=== PATIENT | male | born 1950 | race Caucasian/White ===

== ENCOUNTER 2018-07-31 06:03 | Day surgery (SDC) | payer OTHER ==
[2018-07-31] MEDS ORDERED: LR 1,000 ML IV ONE (06:13)
[2018-07-31] MEDS ORDERED: LIDOCAINE 1% 2 ML INJ ID PRN (06:13)
[2018-07-31] MEDS ORDERED: ceFAZolin 2 GM/DEXTROSE 100 ML IV ONE (06:13)
[2018-07-31] MEDS ORDERED: BUPIVACAINE 0.5% 30 ML SDV ONE (06:38)
[2018-07-31] MEDS ORDERED: MIDAZOLAM 2 MG/2 ML VIAL IVP ONE (07:00)
--- NOTE | 2018-07-31 07:01 | PDANEPAE ---
ANE History of Present Illness here for [facility] ANE Past Medical History - Cardiovascular History Hx Hypertension: No Hx Arrhythmias: No Hx Chest Pain: No Hx Coronary Artery / Peripheral Vascular Disease: No Hx CHF / Valvular Disease: No Hx Palpitations: No - Pulmonary History Hx COPD: No Hx Asthma/Reactive Airway Disease: No Hx Recent Upper Respiratory Infection: No Hx Oxygen in Use at Home: No Hx Sleep Apnea: No Sleep Apnea Screening Result - Last Documented: Negative - Neurologic History Hx Cerebrovascular Accident: No Hx Seizures: No Hx Dementia: No - Endocrine History Hx Diabetes: No - Renal History Hx Renal Disorders: No - Liver History Hx Hepatic Disorders: No - Neurological & Psychiatric Hx Hx Neurological and Psychiatric Disorders: No - Cancer History Hx Cancer: No - Congenital Disorder History Hx Congenital Disorders: No - GI History Hx Gastrointestinal Disorders: No - Other Health History Other Health History: deviated septum, difficulty breathing through nose. wears contacts/ glasses - Chronic Pain History Chronic Pain: No - Surgical History Prior Surgeries: eyelid surgery with local ANE Review of Systems Review of systems is: negative Review of Systems: - Exercise capacity Exercise capacity: >=4 METS METS (RN): 4 METS ANE Patient History - Allergies Allergies/Adverse Reactions: No Known Allergies Allergy (Verified 07/31/18 06:35) - Home Medications Home medications: home medication list seen and reviewed Home Medications: Aleve 220 MG (*) PRN 07/27/18 [Last Taken 07/30/18] Aspirin PRN 07/27/18 [Last Taken 07/27/18] - NPO status NPO Status: no food or drink >8 hours NPO Since - Liquids (Date): 07/30/18 NPO Since - Liquids (Time): 23:00 NPO Since - Solids (Date): 07/30/18 NPO Since - Solids (Time): 23:00 - Anes Hx Anes Hx: no prior problems - Smoking Hx Smoking Status: Former smoker - Family Anes Hx Family Hx Anesthesia Complications: none ANE Labs/Vital Signs - Vital Signs Vital Signs: reviewed preoperatively; see RN documention for details Blood Pressure: 115/70 Heart Rate: 66 Respiratory Rate: 16 O2 Sat (%): 95 Height: 175.26 cm Weight: 74.389 kg ANE Physical Exam - Airway Neck exam: FROM Mallampati Score: Class 1 - Pulmonary Pulmonary: no respiratory distress - Cardiovascular Cardiovascular: regular rate and rhythym - ASA Status ASA Status: II ANE Anesthesia Plan Anesthesia Plan: general endotracheal anesthesia
[2018-07-31] MEDS ORDERED: NALOXONE HCL 0.4 MG/ML INJ IVP PRN (07:07)
[2018-07-31] MEDS ORDERED: DEXAMETHASONE 4 MG/ML VIAL IVP PRN (07:07)
[2018-07-31] MEDS ORDERED: ALBUTEROL 3 ML DEYVIAL IH PRN (07:07)
[2018-07-31] MEDS ORDERED: ONDANSETRON 4 MG/2 ML VIAL IVP PRN (07:07)
[2018-07-31] MEDS ORDERED: HYDROmorphONE/DILAUDID 2 MG/ML INJ IVP PRN (07:07)
[2018-07-31] MEDS ORDERED: fentaNYL 100 MCG/2 ML INJ IVP PRN (07:07)
[2018-07-31] MEDS ORDERED: PROPOFOL/EMULSION 500 MG/50 ML BOTTLE IV ONE (07:14)
[2018-07-31] MEDS ORDERED: ROCURONIUM 100 MG/10 ML VIAL ONE (07:15)
--- NOTE | 2018-07-31 07:16 | PDHPUP ---
History & Physical Update H&P update statement: This history and physical update is based on an assessment of the patient which was completed after admission or registration (within 24 hours), but prior to the surgery/procedure. H&P update: H&P reviewed & patient examined, no change in patient's condition since H&P completed
[2018-07-31] MEDS ORDERED: fentaNYL 100 MCG/2 ML INJ ONE (07:17)
[2018-07-31] MEDS ORDERED: DEXAMETHASONE 4 MG/ML VIAL ONE (07:18)
[2018-07-31] MEDS ORDERED: ONDANSETRON 4 MG/2 ML VIAL ONE (07:18)
[2018-07-31] MEDS ORDERED: SUGAMMADEX SODIUM 200 MG/2 ML VIAL IVP ONE (08:13)
[2018-07-31] MEDS ORDERED: KETOROLAC 30 MG/1 ML SDV ONE (08:15)
--- NOTE | 2018-07-31 08:40 | POSTOPPROG ---
Post Op Note Date of Operation: 07/31/18 Surgeon: Fredy Chang Anesthesiologist: Dr. Nazario Anesthesia: GET(General Endotracheal) Pre-op Diagnosis: BIH Post-op Diagnosis: BIH Procedure: TEP BI[facility] Findings: Moderate indirect right, small indirect L Inf/Abcess present in the surg proc area at time of surgery?: No EBL: Minimal
[2018-07-31 09:24] VITALS: BP 109/74
--- NOTE | 2018-07-31 10:31 | GOP ---
DATE OF OPERATION: 07/31/2018 SURGEON: Jose Armando Chang MD ANESTHESIA: General endotracheal ANESTHESIOLOGIST: Dr. Nazario PREOPERATIVE DIAGNOSIS: Bilateral inguinal hernia. POSTOPERATIVE DIAGNOSIS: Bilateral inguinal hernia. PROCEDURE PERFORMED: Laparoscopic totally extraperitoneal bilateral inguinal hernia repair. FINDINGS: The patient had a moderate indirect hernia and a small femoral hernia on the left and a sm all indirect hernia with a small lipoma on the right. ESTIMATED BLOOD LOSS: 20 cc. INDICATIONS: A 68-year-old male with a history of a groin bulge. The risks and benefits of the proc edure were discussed with the patient and his family. Their questions were answered and they wished to proceed. DESCRIPTION OF PROCEDURE: The patient was placed in the supine position. After the induction of aline quate general endotracheal anesthesia, the patient was prepped and draped in the sterile surgical fas hion. Marcaine 0.5% was injected in the infra-umbilical area and a transverse incision was made, halle roximately 10 mm in length. This was carried down to the subcutaneous tissue with blunt dissection. The anterior fascia was exposed and incised just lateral to the midline. The preperitoneal space wa s then created bluntly, and the balloon dissector introduced. Once this was appropriately positioned , it was inflated under direct vision using the laparoscope. Once adequate dissection had been obtai mei, the balloon was deflated and withdrawn. The balloon stabilizer was then placed into the same pr eperitoneal plane. The balloon stabilizer was then inflated. The preperitoneal space was then insufflated with carbon dioxide. Two more trocars were placed, both in the midline in the supraumbilical and mid lower abdomen sites. These were both placed under dire ct vision after injecting 0.5% Marcaine for local anesthesia. Blunt dissection was used to expose Hesselbach's triangle. Tyrone's ligament was then exposed and th e femoral space explored. Next the space of Bogros was cleared laterally. The cord structures were seen and preserved, and the preperitoneal fat was retracted in a [id number] fashion. The hernia sac was then retracted in a similar fashion. A shaped mesh was then introduced through th e 11-mm trocar and oriented appropriately. It was positioned to ensure coverage of the direct, indir ect, and femoral spaces. The peritoneum and preperitoneal fat were placed over the bottom edge of th e mesh to ensure placement. The carbon dioxide was then allowed to escape and the mesh observed to e nsure positioning. All trocars were then removed under direct vision. Good hemostasis was noted. The fascia at the 11-mm trocar site was closed with 0 Vicryl in an interrupted fashion. The wounds w ere thoroughly irrigated, and the skin was closed with 5-0 Monocryl in a subcuticular stitch. The wo unds were sterilely dressed. The patient was extubated and taken to the post-anesthesia care unit in stable condition. COMPLICATIONS: None. DRAINS: None. ADDENDUM: A large Bard 3DMax mesh was used on each side. /[id number]/MODL
--- NOTE | 2018-07-31 14:43 | POSTANESTH ---
Post Anesthetic Evaluation Cardiovascular Status: Normal, Stable Respiratory Status: Normal, Stable Level of Consciousness/Mental Status: Can Participate in Eval Pain Control: Adequate, Prn Tx Ordered Nausea/Vomiting Control: Adequate, Prn Tx Ordered Complications Possibly Related to Anesthesia: None Noted
== END 2018-07-31 09:54 | disposition home or self-care (01) ==
LOC: FSGY 06:03
PROVIDERS: ATTEND Surgery
PROC: 0YUA4JZ Supplement Bilateral Inguinal Region with Synthetic Substitute, Percutaneous Endoscopic Approach (ICD-10-PCS; principal; 2018-07-31 07:30)
DX: K40.00 Bilateral inguinal hernia, with obstruction, without gangrene, not specified as recurrent (principal); R03.0 Elevated blood-pressure reading, without diagnosis of hypertension; E78.5 Hyperlipidemia, unspecified
CPT/HCPCS: C1727; C1781; J0690; J1100; J1885; J2250; J2405; J2704; J3010